=== PATIENT | female | born 1965 | race Caucasian/White ===

== ENCOUNTER → 2021-03-18 | Outpatient (CLI) | payer OTHER | LOC: US 13:05 | DX: E04.1 Nontoxic single thyroid nodule (principal); C18.7 Malignant neoplasm of sigmoid colon | CPT/HCPCS: 76536 ==

== ENCOUNTER → 2021-03-24 | Outpatient (CLI) | payer OTHER ==
[~2021-03-24] MED LIST: ASMANEX220 MCG INH; BENZONATATE200 MG PO; SINGULAIR10 MG PO; VENTOLIN HFA 66.7 GM INH; WOMEN'S DAILY1 EAC1 PO
== END ==
LOC: OPSV2 11:47
DX: Z01.810 Encounter for preprocedural cardiovascular examination (principal)
CPT/HCPCS: 93005

== ENCOUNTER → 2021-03-26 | Day surgery (SDC) | payer OTHER | END | disposition home or self-care (01) | LOC: OR 05:25 | DX: C18.9 Malignant neoplasm of colon, unspecified (principal); J45.991 Cough variant asthma; Z86.16 Personal history of COVID-19; Z79.899 Other long term (current) drug therapy | CPT/HCPCS: 77001; C1769; C1788; J0690; J1100; J1642; J2001; J2250; J2405; J2704; J3010; J7030; J7040; J7120 ==

== ENCOUNTER → 2022-03-11 | Day surgery (SDC) | payer OTHER | END | disposition home or self-care (01) | LOC: OR 07:00 | DX: Z08 Encounter for follow-up examination after completed treatment for malignant neoplasm (principal); Z85.038 Personal history of other malignant neoplasm of large intestine; K64.1 Second degree hemorrhoids; J45.909 Unspecified asthma, uncomplicated; Z79.899 Other long term (current) drug therapy | CPT/HCPCS: J2704; J7040 ==